=== PATIENT | female | born 1960 ===

== ENCOUNTER 2021-06-28 06:10 | Day surgery (SDC) | payer OTHER ==
[~2021-06-28] VITALS: Ht 152.4 cm; Wt 68.9 kg
[~2021-06-28 06:10] MED LIST: AVALIDE 300-121 EACH PO; CLONAZEPAM0.5 MG PO; LEXAPRO20 MG PO
[2021-06-28] MEDS ORDERED: MORGIDOX100 MG PO (09:42)
== END 2021-06-28 13:25 | disposition home or self-care (01) ==
LOC: CIR.AMB 06:10
PROVIDERS: ATTEND Obstetrics & Gynecology
DX: N84.0 Polyp of corpus uteri (principal); Z20.822 Contact with and (suspected) exposure to COVID-19; I10 Essential (primary) hypertension; F41.0 Panic disorder [episodic paroxysmal anxiety]